=== PATIENT | male | born 1975 | race Caucasian/White ===

== ENCOUNTER 2019-12-11 23:34 | Emergency (ER) | payer SELFPAY ==
[2019-12-11 23:46] VITALS: BP 130/89; PULSE 90; RESP 18; TEMP 36.7; O2SAT 98; BMI 22.4
--- NOTE | 2019-12-12 00:34 | XRR_ITS ---
PROCEDURE INFORMATION: Exam: XR Chest, 1 View Exam date and time: 12/12/2019 1:14 AM Age: 44 years old Clinical indication: Cough TECHNIQUE: Imaging protocol: XR of the chest Views: 1 view. COMPARISON: No relevant prior studies available. FINDINGS: Lungs: The lungs are clear bilaterally. Pulmonary vasculature within normal limits. Pleural space: No visible pneumothorax or pleural effusion. Heart/Mediastinum: Cardiomediastinal silhouette contour within normal limits. Bones/joints: No emergent findings identified. XR/XR chest 1V portable [id number] IMPRESSION: 1. No radiographic findings of acute cardiopulmonary disease.
[2019-12-12 01:11] VITALS: BP 111/64; PULSE 77; RESP 14; O2SAT 94
[2019-12-12 01:39] LABS: Add Urine Microscopic? NO
[2019-12-12 01:41] LABS: Basophils % 0.4 %; Eosinophils # 0.1 10^3/uL (0.0-0.8); Eosinophils % 1.5 %; Hematocrit 41.3 % (42.0-52.0); Hemoglobin 13.5 g/dL (11.7-16.6); Lymphocytes % 23.1 %; Mean Corpuscular HGB Conc 32.7 g/dL (30.0-36.0); Mean Corpuscular Hemoglobin 26.7 pg (28.0-34.0); Mean Corpuscular Volume 81.8 fL (80-94); Mean Platelet Volume 8.4 fL (7.4-10.4); Monocytes % 11.2 %; Neutrophils # 5.5 10^3/uL (1.8-7.7); Neutrophils % 63.6 %; Nucleated Red Blood Cells % 0 %; Platelet Count 181 10^3/cmm (130-400); Red Blood Count 5.05 10^6/uL (4.1-5.3); Red Cell Distribution Width 17.3 % (12.1-15.1); White Blood Count 8.6 10^3/uL (4.0-10.0)
[2019-12-12 01:49] VITALS: BP 109/64; PULSE 74; RESP 16; O2SAT 94
[2019-12-12 01:50] LABS: Amphetamines Screen Urine Negative (Negative); Barbiturates Screen Urine Negative (Negative); Benzodiazepines Screen Urine Negative (Negative); Bilirubin Urine Neg (NEGATIVE); Blood Urine Neg (Negative); Cocaine Screen Urine Negative (Negative); Glucose Urine UA Norm (Normal); Ketones Urine Negative (Negative); Leukocyte Esterase Urine Negative (Negative); Nitrate Urine Negative (Negative); Opiate Screen Urine Negative (Negative); PCP Screen Urine Negative (Negative); Protein Urine Neg (Negative); Specific Gravity, Urine 1.015 (1.005-1.030); THC Screen Urine Negative (Negative); Urine Appearance Clear (CLEAR); Urine Color Yellow (Yellow); Urobilinogen Urine Norm (Negative); pH Urine 6.5 (5-7)
[2019-12-12 02:08] VITALS: BP 106/78; PULSE 63; RESP 12; O2SAT 94
[2019-12-12 02:37] LABS: Alanine Aminotransferase 15 U/L (0-41); Albumin Level 4.3 g/dL (3.5-5.2); Alkaline Phosphatase 68 IU/L (40-130); Anion Gap 15.1 (5-19); Aspartate Amino Transferase 19 U/L (0-40); Blood Urea Nitrogen 13 mg/dL (6-20); C Reactive Protein 1.1 mg/L (0.0-4.9); Calcium 9.4 mg/dL (8.5-10.5); Carbon Dioxide 26 mmol/L (22-29); Chloride 103 mmol/L (98-107); Globulin 2.5 g/dL (1.3-4.6); Glomerular Filtration Rate 92.5 mL/min (90-130); Glucose 106 mg/dL (65-115); Lipase 23 U/L (13-60); Osmolality Calculated 287 mOsm/kg (285-295); Potassium 4.1 mmol/L (3.5-5.1); Procalcitonin 0.05 ng/mL (0-0.5); Sodium 140 mmol/L (136-145); Total Bilirubin 0.4 mg/dL (0.15-1.2); Total Protein 6.8 g/dL (6.6-8.7)
[2019-12-12 03:08] VITALS: BP 107/72; PULSE 76; RESP 18; O2SAT 98
--- NOTE | 2019-12-13 05:52 | W.ED.GENADLT ---
HPI - General Adult General: Chief complaint: General Medical Stated complaint: SOB/ COUGH/ VOMITING Time Seen by Provider: 12/11/19 23:45 History of Present Illness: HPI narrative: 44-year-old man with known COVID-19 exposure at work. He presents with a cough, but more symptoms of nausea and vomiting. He says that he has not had much intake. He complains of epigastric discomfort. He denies significant fever. Onset (ago): hour(s) Location: abdomen Radiation: non-radiation Severity: moderate Quality: burning Pain Consistency: constant Associated symptoms: Reports cough, nausea and vomiting; Deny chest pain, dyspnea, headache(s), rash or short of breath Review of Systems Const: Denies: fever(s) or chills Eyes: Denies: change in vision or blurry vision ENMT: Denies: swelling of lips/tongue or sinus pain Card: Denies: chest pain Resp: Denies: dyspnea or wheezing GI: Reports: nausea and vomiting : Denies: difficulty urinating or hematuria Musc: Denies: neck pain or back pain Skin/Breast: Denies: rash, pruritus or erythema Neuro: Denies: headache(s), dizziness, vertigo or seizure-like activity Psych: Denies: anxiety Physical Exam Const: GENERAL APPEARANCE: well developed ORIENTATION/CONSCIOUSNESS: Yes oriented to person, Yes oriented to place and Yes oriented to time HENMT: COMMON NORMALS: normocephalic, external ears normal and Normal external nose present HEAD & SCALP: normocephalic FACE & SINUS: normal facial exam NOSE: Normal external nose present and No nasal discharge present EXTERNAL EAR: Yes external ears normal MOUTH: tongue normal Eye: COMMON NORMALS: Equal, round and reactive pupils present, EOMs intact bilaterally and conjunctivae normal EYELID: eyelids normal CONJUNCTIVA: Yes conjunctivae normal PUPIL: Yes Equal, round and reactive pupils present Neck/C-Spine: GENERAL: No tracheal deviation Chest: COMMONS NORMALS: normal inspection of the chest CHEST: No tenderness Resp: COMMON NORMALS: clear to auscultation bilaterally EFFORT & INSPECTION: No tachypneic, No respiratory distress, No retractions, No uses accessory muscles and No tracheal deviation AUSCULTATION: clear to auscultation bilaterally, no rhonchi, no wheezes and lung sounds not diminished Cardio: COMMON NORMALS: regular rate and regular rhythm RATE: regular rate RHYTHM: regular rhythm HEART SOUNDS: no murmurs PERIPHERAL PULSES: radial pulses present GI: INSPECTION: No abdominal distension AUSCULTATION: No Hyperactive bowel sounds present and No Hypoactive bowel sounds present PALPATION: Yes Tenderness to palpation present (GI) (epigastric), No Guarding due to palpation present (GI) and No Rigid due to palpation PERCUSSION: no dullness to percussion and no tympanic to percussion Neuro: SENSORIUM/ORIENTATION: Yes oriented to person, Yes oriented to place and Yes oriented to time Psych: COMMON NORMALS: mental status grossly normal Skin: COMMON NORMALS: no rashes or lesions noted GENERAL SKIN EXAM: no rashes or lesions noted Course Vital Signs: Vital signs: Vital Signs Temperature 98.1 F 12/11/19 23:46 Pulse Rate 76 12/12/19 03:08 Respiratory Rate 18 12/12/19 03:08 Blood Pressure 107/72 12/12/19 03:08 Pulse Oximetry 98 12/12/19 03:08 MDM - General Adult MDM Narrative: Medical decision making narrative: Patient has had a known exposure COVID-19. He is tested here. He is not hypoxic. He is not tachycardic. His labs are benign. He will be allowed home. He is symptoms are more related to gastritis. He will be treated for such. Lab Data: Labs: Lab Results 12/12/19 12/12/19 12/12/19 Range/Units 01:10 01:10 01:22 WBC 8.6 (4.0-10.0) 10^3/ uL RBC 5.05 (4.1-5.3) 10^6/u L Hgb 13.5 (11.7-16.6) g/dL Hct 41.3 L (42.0-52.0) % MCV 81.8 (80-94) fL MCH 26.7 L (28.0-34.0) pg MCHC 32.7 (30.0-36.0) g/dL RDW 17.3 H (12.1-15.1) % Plt Count 181 (130-400) 10^3/c mm MPV 8.4 (7.4-10.4) fL Neut % (Auto) 63.6 % Lymph % (Auto) 23.1 % [place] % (Auto) 11.2 % Eos % (Auto) 1.5 % Baso % (Auto) 0.4 % Neut # (Auto) 5.5 (1.8-7.7) 10^3/u L Lymph # (Auto) 2.0 (0.8-4.8) 10^3/u L [place] # (Auto) 1.0 H (0.2-0.9) 10^3/u L Eos # (Auto) 0.1 (0.0-0.8) 10^3/u L Baso # (Auto) 0.0 (0.0-0.1) 10^3/u L Nucleated RBC % (a uto) 0 % Nucleated RBCs # 0.0 /100WBC Sodium (136-145) mmol/L Potassium (3.5-5.1) mmol/L Chloride (98-107) mmol/L Carbon Dioxide (22-29) mmol/L Anion Gap (5-19) BUN (6-20) mg/dL Creatinine (0.7-1.2) mg/dL GFR Calculation (90-130) mL/min Glucose (65-115) mg/dL Calculated Osmolal ity (285-295) mOsm/k g Calcium (8.5-10.5) mg/dL Total Bilirubin (0.15-1.2) mg/dL AST (0-40) U/L ALT (0-41) U/L Alkaline Phosphata se (40-130) IU/L C-Reactive Protein (0.0-4.9) mg/L Total Protein (6.6-8.7) g/dL Albumin (3.5-5.2) g/dL Globulin (1.3-4.6) g/dL Lipase (13-60) U/L Procalcitonin (0-0.5) ng/mL Urine Color Yellow (Yellow) Urine Appearance Clear (CLEAR) Urine pH 6.5 (5-7) Ur Specific Gravit y 1.015 (1.005-1.030) Urine Protein Neg (Negative) Urine Glucose (UA) Norm (Normal) Urine Ketones Negative (Negative) Urine Blood Neg (Negative) Urine Nitrate Negative (Negative) Urine Bilirubin Neg (NEGATIVE) Urine Urobilinogen Norm (Negative) mg/dL Ur Leukocyte Lelo ase Negative (Negative) Urine Opiates Scre en Negative (Negative) ng/mL Ur Barbiturates Sc reen Negative (Negative) ng/mL Ur Phencyclidine S crn Negative (Negative) ng/mL Ur Amphetamines Sc reen Negative (Negative) ng/mL U Benzodiazepines Scrn Negative (Negative) ng/mL Urine Cocaine Scre en Negative (Negative) ng/mL U Marijuana (THC) Screen Negative (Negative) ng/mL 12/12/19 Range/Units 01:22 WBC (4.0-10.0) 10^3/ uL RBC (4.1-5.3) 10^6/u L Hgb (11.7-16.6) g/dL Hct (42.0-52.0) % MCV (80-94) fL MCH (28.0-34.0) pg MCHC (30.0-36.0) g/dL RDW (12.1-15.1) % Plt Count (130-400) 10^3/c mm MPV (7.4-10.4) fL Neut % (Auto) % Lymph % (Auto) % [place] % (Auto) % Eos % (Auto) % Baso % (Auto) % Neut # (Auto) (1.8-7.7) 10^3/u L Lymph # (Auto) (0.8-4.8) 10^3/u L [place] # (Auto) (0.2-0.9) 10^3/u L Eos # (Auto) (0.0-0.8) 10^3/u L Baso # (Auto) (0.0-0.1) 10^3/u L Nucleated RBC % (a uto) % Nucleated RBCs # /100WBC Sodium 140 (136-145) mmol/L Potassium 4.1 (3.5-5.1) mmol/L Chloride 103 (98-107) mmol/L Carbon Dioxide 26 (22-29) mmol/L Anion Gap 15.1 (5-19) BUN 13 (6-20) mg/dL Creatinine 0.9 (0.7-1.2) mg/dL GFR Calculation 92.5 (90-130) mL/min Glucose 106 (65-115) mg/dL Calculated Osmolal ity 287 (285-295) mOsm/k g Calcium 9.4 (8.5-10.5) mg/dL Total Bilirubin 0.4 (0.15-1.2) mg/dL AST 19 (0-40) U/L ALT 15 (0-41) U/L Alkaline Phosphata se 68 (40-130) IU/L C-Reactive Protein 1.1 (0.0-4.9) mg/L Total Protein 6.8 (6.6-8.7) g/dL Albumin 4.3 (3.5-5.2) g/dL Globulin 2.5 (1.3-4.6) g/dL Lipase 23 (13-60) U/L Procalcitonin 0.05 (0-0.5) ng/mL Urine Color (Yellow) Urine Appearance (CLEAR) Urine pH (5-7) Ur Specific Gravit y (1.005-1.030) Urine Protein (Negative) Urine Glucose (UA) (Normal) Urine Ketones (Negative) Urine Blood (Negative) Urine Nitrate (Negative) Urine Bilirubin (NEGATIVE) Urine Urobilinogen (Negative) mg/dL Ur Leukocyte Lelo ase (Negative) Urine Opiates Scre en (Negative) ng/mL Ur Barbiturates Sc reen (Negative) ng/mL Ur Phencyclidine S crn (Negative) ng/mL Ur Amphetamines Sc reen (Negative) ng/mL U Benzodiazepines Scrn (Negative) ng/mL Urine Cocaine Scre en (Negative) ng/mL U Marijuana (THC) Screen (Negative) ng/mL Discharge Plan Discharge Patient Disposition: Home, Self-Care Clinical Impression: Gastritis Qualifiers: Gastritis type: unspecified gastritis Chronicity: acute Gastritis bleeding: without bleeding Qualified Code(s): K29.00 - Acute gastritis without bleeding Condition: Stable Prescriptions: New Prevacid 30 mg capsule,delayed release(DR/EC) 30 mg PO BID Qty: 60 RF: 0 Carafate 1 gram tablet 1 gm PO TID 28 Days Qty: 84 RF: 0 No Action Suboxone 8-2 mg Film 1 film buccal DAILY RF: 0 Singulair 10 mg Tablet 10 mg PO DAILY RF: 0 albuterol sulfate 90 mcg/actuation Hfa Aerosol Inhaler 2 puff INHALATION PC PRN (Reason: Wheezing) RF: 0 Flonase Allergy Relief 50 mcg/actuation [place],Suspension 2 spray INTRANASAL DAILY RF: 0 Discharge Orders: Discharge Order (Routine); Ordered 12/12/19 Ordered By: Robb Bryan Discharge Diet: Advance as tolerated Discharge Activity: Increase activity as tolerated Patient Instructions: Gastritis (ED) Activity Restrictions/Additional Instructions: Return for vomiting liquids or medications despite treatment, fever greater than 100, shortness of breath, worsening cough, other concerning symptoms. You will be notified of the results of your test as soon as they arrive. Discharge Date/Time: 12/12/19 03:09 Coding Level of Care Code ED Therapeutic Assistant for Thien Maciel
== END 2019-12-12 03:09 | disposition home or self-care (01) ==
PROVIDERS: Emergency Provider Emergency Medicine
DX: K29.00 Acute gastritis without bleeding (principal)
CPT/HCPCS: 12345; 71045; 80053; 80306; 81003; 83690; 84145; 85025; 86140; 87635; 99282; 99283

== ENCOUNTER → 2022-08-09 11:35 | Outpatient (BNVA) | payer MEDICAID, SELFPAY | PROVIDERS: PCP Nurse Practitioner; Visit Provider Nurse Practitioner | DX: Z79.899 Other long term (current) drug therapy (principal) | CPT/HCPCS: 80053; 80061; 84443; 85025 ==

== ENCOUNTER 2023-02-06 07:42 | Day surgery (SDC) | payer MEDICAID, SELFPAY ==
[2023-02-06 07:55] VITALS: BP 113/80; PULSE 88; RESP 14; TEMP 36.6; O2SAT 97
[2023-02-06] MEDS: sodium chloride 0.9% 1,000 ML 30 ML IV (08:11)
--- NOTE | 2023-02-06 08:34 | ANES.PREANE2 ---
Pre-Anesthetic Assessment Height/Weight: Height 1.7 m Weight 63.503 kg Temp Pulse Resp BP Pulse Ox O2 Del Method 97.9 F 88 14 113/80 97 Room Air 02/06/23 07:55 02/06/23 07:55 02/06/23 07:55 02/06/23 07:55 02/06/23 07:55 02/06/23 07:55 Preop Diagnosis: epigastric pain, melena Operation Date: 02/06/23 08:45 Proposed Procedures p 64763 EGD [id number] Colonoscopy z12.11,r10.13,k92.1(Not Applicable) - Robert Brito DO s Colonoscopy(Not Applicable) - Robert Brito DO Was Beta [place] taken within 24 hours: N/A Was Clonidine taken within 24 hours: N/A Last intake: Intake Last Liquid Date 02/05/23 Last Liquid Time 22:00 Last Solid Date 02/04/23 Last Solid Time 22:30 Social Tobacco last cig this morning pack(s) per day daily marijuana Exam alert, oriented x 3, clear to auscultation bilaterally and regular rate & rhythm Airway Submandibular: within normal limits Cervical ROM: within normal limits Mallampati: Class II Comments: Comments: missing all of top teeth History/ROS No significant history except as noted and No significant complaints Pulmonary tobacco usage CV/HEM None reported None reported Hepatic None reported GI Gastroesophageal Reflux Disease Metabolic None reported Musc/skel None reported Neuropsych Anxiety and Depression last took suboxone yesterday Anesthetic Plan ASA status: 2 Anesthesia: Anesthesia Evaluation and MAC Risk of > 500 ml blood loss (7ml/kg in children): Yes, adequate IV access and fluids planned Medications/Allergies Home Medications Medication Instructions Recorded Confirmed Last Taken Type albuterol sulfate 90 mcg/actuation 2 puff inhalation PC PRN Wheezing 12/11/19 02/04/23 02/04/23 History aerosol inhaler buprenorphine 8 mg-naloxone 2 mg 1 film buccal DAILY 12/11/19 02/04/23 02/04/23 History sublingual film (Suboxone) fluticasone propionate 50 2 spray intranasal DAILY 12/11/19 02/04/23 12/11/19 08:00 History mcg/actuation nasal spray,suspension (Flonase Allergy Relief) pantoprazole 40 mg tablet,delayed 40 mg PO BID 6 weeks #84 tabs 12/18/22 02/04/23 02/04/23 Rx release (Protonix) Allergies Allergy/AdvReac Type Severity Reaction Status Date / Time fluoxetine [From Prozac] Allergy ALGY-Anaphy Verified 02/06/23 07:59 laxis tramadol Allergy ADR-Nausea Verified 02/06/23 07:59 Current Medications Generic Name Dose Route Start Last Admin Trade Name Freq PRN Reason Stop Dose Admin Sodium Chloride 1,000 mls @ 30 mls/hr 02/06/23 08:00 02/06/23 08:11 Sodium Chloride 0.9% IV 02/07/23 07:59 30 mls/hr .Q24H BREE Administration PFSH Anesthesia Surgical History (Updated 12/18/22 @ 11:25 by Robert Brito DO) History of esophagogastroduodenoscopy (EGD) Hx of carpal tunnel repair Hx of colonoscopy Social History Smoking and tobacco status: current every day smoker Alcohol intake: never Marital status: Current occupational status: employed Data Anesthesia Cardiac Studies: No Data to Display
--- NOTE | 2023-02-06 08:51 | PM.HP ---
Providers/Chief Complaint Primary Care Provider: Mariya Elkins APN Chief Complaint: [id number] History of Present Illness Thong Broderick is a 47 year old male Medications/Allergies Home Medications Medication Instructions Recorded Confirmed Last Taken Type albuterol sulfate 90 mcg/actuation 2 puff inhalation PC PRN Wheezing 12/11/19 02/04/23 02/04/23 History aerosol inhaler buprenorphine 8 mg-naloxone 2 mg 1 film buccal DAILY 12/11/19 02/04/23 02/04/23 History sublingual film (Suboxone) fluticasone propionate 50 2 spray intranasal DAILY 12/11/19 02/04/23 12/11/19 08:00 History mcg/actuation nasal spray,suspension (Flonase Allergy Relief) pantoprazole 40 mg tablet,delayed 40 mg PO BID 6 weeks #84 tabs 12/18/22 02/04/23 02/04/23 Rx release (Protonix) Allergies Allergy/AdvReac Type Severity Reaction Status Date / Time fluoxetine [From Prozac] Allergy ALGY-Anaphy Verified 02/06/23 07:59 laxis tramadol Allergy ADR-Nausea Verified 02/06/23 07:59 PFSH Acute PFSH: Surgical History (Updated 12/18/22 @ 11:25 by Robert Brito DO) History of esophagogastroduodenoscopy (EGD) Hx of carpal tunnel repair Hx of colonoscopy Social History Smoking and tobacco status: current every day smoker Alcohol intake: never Marital status: Current occupational status: employed Vitals/I&O/Wt Last Vital Signs Temp 97.9 F 02/06/23 07:55 Pulse 88 02/06/23 07:55 Resp 14 02/06/23 07:55 BP 113/80 02/06/23 07:55 Pulse Ox 97 02/06/23 07:55 O2 Del Method Room Air 02/06/23 07:55 Weight last 48 hrs Weight 140 lb A&P Assessment and plan (1) Colon cancer screening: (2) Epigastric pain: (3) Melena: Plan EGD and screening colonoscopy Attestations Medical Necessity Statement*: Home Coding Level of Care Code Acute Code for Chg Fwd Diagnoses Colon cancer screening Z12.11 Epigastric pain R10.13 Melena K92.1
[2023-02-06 09:23] VITALS: BP 99/65; PULSE 86; RESP 16; TEMP 36.1; O2SAT 93
[2023-02-06 09:33] VITALS: BP 106/71; PULSE 78; RESP 16; O2SAT 93
--- NOTE | 2023-02-06 09:45 | ANE.PACU2 ---
Inpatient post-anesthesia follow up: Airway intact: Yes Vital signs: Temperature 97.0 F Pulse Rate 78 Respiratory Rate 16 Blood Pressure 106/71 Pulse Oximetry 93 Oxygen Delivery Me thod Room Air Oxygen Flow Rate Fraction of Inspir ed Oxygen Hydration adequate: Yes Nausea and vomiting: No Pain level: 1 Mental status: Baseline
== END 2023-02-06 09:48 | disposition home or self-care (01) ==
PROVIDERS: PCP Nurse Practitioner; Visit Provider Surgery
PROC: 0DJ08ZZ Inspection of Upper Intestinal Tract, Via Natural or Artificial Opening Endoscopic (ICD-10-PCS; CPT 43235; principal; 2023-02-06 08:45)
PROC: 0DJD8ZZ Inspection of Lower Intestinal Tract, Via Natural or Artificial Opening Endoscopic (ICD-10-PCS; CPT 45378; 2023-02-06 08:45)
DX: K92.1 Melena (principal); R10.13 Epigastric pain; K29.70 Gastritis, unspecified, without bleeding; K21.9 Gastro-esophageal reflux disease without esophagitis; F17.200 Nicotine dependence, unspecified, uncomplicated
CPT/HCPCS: 43239; 45385; 88305; J2704; J7030